=== PATIENT | male | born 1955 | race Caucasian/White ===

== ENCOUNTER 2016-12-04 09:56 | Observation (INO) | payer OTHER ==
[2016-12-04 10:42] VITALS: BMI 26.4
--- NOTE | 2016-12-04 11:08 | PDOC ---
History of Present Illness - General Chief Complaint: Syncope/Near Syncope Stated Complaint: syncope Time Seen by Provider: 12/04/16 10:21 - History of Present Illness Initial Comments: 12/04/16 11:02 61-year-old male with a past medical history of hypertension, kidney stones, and an incomplete right bundle branch block He is a nonsmoker, and states that his mother did have a history of heart disease He states that he did have a stress test 3-4 years ago which was reportedly negative, done at another hospital Patient is recently been under a lot of stress, due to loss of his job and for the past 48 hours he's been homeless with his and child Patient states that at 7:45 this morning he was arguing with his , when he developed sudden sharp, midsternal chest pain, and then had a witnessed syncopal episode, which was brief. He didn't fall to the ground He states that he did awaken quickly, and come around quickly, and when he came around he denied any chest pain He did complain of generalized weakness He states he was hyperventilating He denies any neck jaw or arm radiation, he denies any back radiation He denies any diaphoresis He admits to some slight palpitations He states that he feels "okay" now She states that approximately 9 months ago he had a similar episode He denies any recent intercurrent illnesses, he denies any fevers or chills, vomiting diarrhea, cough or sputum, or any other complaints at this time He is not having any chest pain at this time He denies any other complaints at this time, and the remainder of the review of systems is negative Past History - Past Medical History Allergies/Adverse Reactions: Allergies Allergy/AdvReac Type Severity Reaction Status Date / Time orange Allergy Intermediate Hives Verified 12/04/16 11:18 peach Allergy Intermediate Difficulty Verified 12/04/16 11:18 Breathing almonds Allergy Intermediate Difficulty Uncoded 12/04/16 11:18 Breathing Home Medications: Ambulatory Orders Amlodipine Besylate [Norvasc -] 5 mg PO DAILY 10/31/13 Lisinopril/Hydrochlorothiazide [Lisinopril-Hctz 20-12.5 mg Tab] 1 each PO DAILY 04/21/14 Aspirin Coated [Ecotrin -] 81 mg PO DAILY tablet.ec 12/04/16 HTN: Yes Suicide Attempt (Hx): No - Family Disease History Family Disease History: Heart Disease: Father (hypertension) - Immunization History Immunization Up to Date: Yes - Psycho/Social/Smoking Cessation Hx Anxiety: No Suicidal Ideation: Yes Smoking History: Never smoked Have you smoked in the past 12 months: No Information on smoking cessation initiated: No Hx Alcohol Use: No Drug/Substance Use Hx: No Substance Use Type: None Hx Substance Use Treatment: No Review of Systems - Review of Systems Able to Perform ROS?: Yes Comments:: 12/04/16 11:05 12 point review of systems is as per history of present illness and otherwise negative *Physical Exam - Vital Signs Last Vital Signs Temp Pulse Resp BP Pulse Ox 98.1 F 71 19 126/81 100 12/04/16 09:57 12/04/16 09:57 12/04/16 09:57 12/04/16 09:57 12/04/16 09:57 - Physical Exam Comments: 12/04/16 11:05 Physical exam Last Vital Signs Temp Pulse Resp BP Pulse Ox 98.1 F 71 19 126/81 100 12/04/16 09:57 12/04/16 09:57 12/04/16 09:57 12/04/16 09:57 12/04/16 09:57 GENERAL: The patient is awake, alert, and fully oriented, and in no apparent distress. HEAD: Normal with no signs of trauma. EYES: Pupils equal, round and reactive to light, extraocular movements intact, sclera anicteric, conjunctiva are normal. ENT: oropharynx clear without exudates. Moist mucous membranes. NECK: Normal range of motion, supple LUNGS: Breath sounds equal, clear to auscultation bilaterally. No wheezes, and no crackles. HEART: Regular rate and rhythm, normal S1 and S2 without murmur, rub or gallop. ABDOMEN: Soft, nontender, normoactive bowel sounds. No guarding, no rebound. No masses appreciated. EXTREMITIES: Normal range of motion, no edema. No clubbing or cyanosis. No cords, erythema, or tenderness. NEUROLOGICAL: Cranial nerves II through XII grossly intact. Normal speech, normal gait. PSYCH: Normal mood, normal affect. SKIN: Warm, Dry, normal turgor, no rashes or lesions noted. Heart Score/ECG Review - History History: Moderately suspicious - Electrocardiogram EKG: Non specific repolarization disturbance - Age Age: 45-65 - Risk Factors Risk Factors Heart Score: Yes Hx Hypertension, Yes Positive family hx of cardiac disease Based on the list above the patient has:: 1-2 risk factors - Troponin Troponin: </= normal limit - Score Heart Score - Total: 4 ED Treatment Course - LABORATORY CBC & Chemistry Diagram: 12/04/16 11:15 12/04/16 11:04 - RADIOLOGY Radiology Studies Ordered: Category Date Time Status CHEST X-RAY PORTABLE* [RAD] Stat Radiology 12/04/16 10:30 Ordered Medical Decision Making - Medical Decision Making 12/04/16 11:06 Heart score 4 Patient with risk factors of hypertension, family history EKG Normal sinus rhythm 76, 0 axis Normal OH interval Incomplete right bundle branch block, with a QRS duration of 106 ms Normal QTC No evidence of Brugada syndrome on EKG Patient states that he does have a history of an incomplete bundle branch block Patient also states that due to the severe stress he is under an family situation, he has been feeling intermittently suicidal, but denies having a plan , and states that he would not do anything because of his lab and concern for his son Given all the above, and the heart score of 4, patient will need to be placed in observation for serial enzymes and cardiac workup, can be seen by psychiatry and social work while here 12/04/16 12:45 Chest x-ray NAD Laboratory Results - last 24 hr 12/04/16 12/04/16 12/04/16 11:04 11:15 11:15 WBC 5.0 RBC 5.02 Hgb 13.9 Hct 43.1 MCV 85.9 MCHC 32.2 RDW 12.8 Plt Count 212 MPV 8.0 Sodium 134 L Potassium 3.9 Chloride 99 Carbon Dioxide 24 Anion Gap 11 BUN 15 Creatinine 1.2 Creat Clearance w eGFR > 60 Random Glucose 91 Calcium 8.8 Magnesium 2.1 Total Bilirubin 1.5 H AST 21 ALT 15 Alkaline Phosphatase 71 Creatine Kinase 124 Total Protein 7.0 Albumin 4.0 First set of cardiac enzymed negative Will place in observation 12/04/16 13:[address] Guillermo Parker-Will place in observation, will put in consult for cardiology and psych 12/04/16 13:[address] Cruz, cardiology, will see patient in consultation 12/04/16 14:14 Dr. Chepuru callback-case discussed with Dr. Devries-will see patient in consultation *DC/Admit/Observation/Transfer Diagnosis at time of Disposition: Chest pain, Syncope - Discharge Dispostion Condition at time of disposition: Good Admit: Yes
[2016-12-04 11:44] LABS: MCH 27.7 pg (25.7-33.7); MCHC 32.2 g/dl (32.0-35.9); MEAN CELL VOLUME 85.9 fl (80-96); PLATELET COUNT 212 K/MM3 (134-434); RDW 12.8 % (11.9-15.9)
[2016-12-04 12:28] LABS: CPK(DFH) 124 IU/L (38-174)
[2016-12-04 12:29] LABS: ALK PHOS 71 U/L (32-92); ANION GAP 11 (8-16); BILIRUBIN,TOTAL 1.5 mg/dl (0.2-1.0); CALCIUM 8.8 mg/dl (8.4-10.2); CO2 24 mmol/L (22-28); CREATININE 1.2 mg/dl (0.6-1.3); GLUCOSE,RANDOM 91 mg/dl (74-106); MAGNESIUM 2.1 mg/dL (1.8-2.4); SGOT/AST 21 U/L (10-42); SGPT/ALT 15 U/L (10-40)
--- NOTE | 2016-12-04 12:29 | EKG ---
Test Reason : Blood Pressure : / mmHG Vent. Rate : 076 BPM Atrial Rate : 076 BPM P-R Int : 152 ms QRS Dur : 106 ms QT Int : 382 ms P-R-T Axes : 021 000 037 degrees QTc Int : 429 ms NORMAL SINUS RHYTHM NORMAL ECG NO PREVIOUS ECGS AVAILABLE Confirmed by GILBERT KEVIN MD ([id number]) on 12/04/2016 12:28:52 PM Referred By: CEFERINO LEONG Confirmed By:GILBERT KEVIN MD
[2016-12-04 12:53] LABS: TROPONIN I (DFP) < 0.03 ng/ml (0.03-0.50)
[2016-12-04] MEDS: HYDROCHLOROTHIAZIDE 12.5 MG CAPSULE (FP) PO SCH (13:25)
[2016-12-04] MEDS ORDERED: LISINOPRIL 20 MG TABLET (FP) PO SCH (13:30)
--- NOTE | 2016-12-04 17:21 | CONSULT ---
Cardiology Consult (text) - Consultation Consultation Note: 61-year-old male with a past medical history of hypertension, kidney stones, anxiety with panic attacks and depression who presents with CP and syncopal event. Had episode of severe CP while arguing with his . Experienced severe CP for a few seconds and then sudden loss of consciousness. witnessed him collapse to floor. Brief LOC. Dizzy and weak on arousal, no longer was feeling cp. Similar episode of CP with syncope one year ago, was evaluated in ER, no etiology identified. No other h/o dizziness/presyncope. States has similar chest discomfort when he experiences panic attacks. +++ stress, due to loss of his job and currently homeless. Endorses adherence to anti-hypertensives. No recent decrease in functional capacity. No h/o palps, sob, orthopnea, pnd, le edema, abdominal discomfort, claudication, bleeding. No f/c/s, n/v/d, headache, rashes, cough. PMHx/PSHx: per hpi Social hx: Never smoked, rare etoh, no illicits. Family hx: Father with stroke and CO in his 90's. Ros: per hpi Allergies/Adverse Reactions: Allergies Allergy/AdvReac Type Severity Reaction Status Date / Time orange Allergy Intermediate Hives Verified 12/04/16 11:18 peach Allergy Intermediate Difficulty Verified 12/04/16 11:18 Breathing almonds Allergy Intermediate Difficulty Uncoded 12/04/16 11:18 Breathing Ambulatory Orders Amlodipine Besylate [Norvasc -] 5 mg PO DAILY 10/31/13 Lisinopril/Hydrochlorothiazide [Lisinopril-Hctz 20-12.5 mg Tab] 1 each PO DAILY 04/21/14 Current Medications Amlodipine Besylate (Norvasc -) 5 mg PO DAILY [facility] Heparin Sodium (Porcine) (Heparin -) 5,000 unit SQ BID [facility] Hydrochlorothiazide (Hctz -) 12.5 mg PO DAILY [facility] Lisinopril (Prinivil) 20 mg PO DAILY [facility] Vital Signs - 24 hr 12/04/16 12/04/16 12/04/16 09:57 11:44 13:45 Temperature 98.1 F 98.1 F Pulse Rate 71 Pulse Rate [ 68 83 Left Radial] Respiratory 19 20 20 Rate Blood Pressure 126/81 Blood Pressure 102/88 116/66 [Right Arm] O2 Sat by Pulse 100 99 97 Oximetry (%) Intake & Output 12/02/16 12/03/16 12/04/16 12/05/16 07:59 07:59 07:59 07:59 Weight 190 lb NAD, calm JVD flat, neck supple CTAB, nl effort RRR nl s1, s2 no m/r/g + bs soft nt nd ext without e/c/c + dp/pt no carotid bruits aaox 3 no jaundice, diaphoresis CBC, BMP 12/04/16 11:15 12/04/16 11:04 Laboratory Tests 12/04/16 12/04/16 12/04/16 11:04 11:15 18:30 Magnesium 2.1 Total Bilirubin 1.5 H AST 21 ALT 15 Alkaline Phosphatase 71 Creatine Kinase 124 Troponin I < 0.03 L < 0.03 L Albumin 4.0 EKG: NSR, nl axis/intervals. No ischemic changes. tele: NSR CXR: clear lung de leon. 61-year-old male with a past medical history of hypertension, kidney stones, anxiety with panic attacks and depression who presents with CP and syncopal event. CP/syncope - CE's neg x 2. EKG without ischemic changes. atypical for ACS. - telemetry monitoring - orthostatic vitals in am, IVF if needed. BP running low would hold amlodipine and lisinopril. Con't HCTZ for now if sodium remains stable and patient not orthostatic. - echo, carotid u/s - TSH - management of stress/anxiety per pmd/psych. HTN - medication adjustments as mentioned above.
[2016-12-04 19:04] LABS: CPK(DFH) 111 IU/L (38-174)
[2016-12-04 19:16] LABS: TROPONIN I (DFP) < 0.03 ng/ml (0.03-0.50)
--- NOTE | 2016-12-04 21:41 | HP ---
Admitting History and Physical - Admission Chief Complaint: Non Exert Chest Pain w assoc 30 sec of LOC on day of admission History of Present Illness: and Son at Bedside. 61 m w hx HTN, Inc RBBB and Obesity was having what he described as a heated argument w his when he felt sharp and short sternal chest pain followed by 30 sec LOC. Denies SOB, Lighthedeness, vertigo, palpitations, diaphoresis, rad of sxs, DSOUZA, dyspepsia , N/V?D or memory loss or incontinence. reported he was weak in the legs and needed assistance from son to get up from floor when awoken from loc episode.She denies inv movemnts or foaming of mouth. Pt asid he had asimilar episode w assoc Elev BP at 200/100 (Says he had not been compliant w meds at that terrell) while arguing w 1 yr ago. He was eval in ED @ [facility] and dc home; later saw Cardio but unclear wheteher a complete wk up was done. Pt has been asymptomatic since and he HAS been compliant w BP meds daily. Significant social Hx patient lost his job recently and has been homeless w And Son x 2 days. History Source: Patient, Family Member Limitations to Obtaining History: No Limitations - Past Medical History Cardiovascular: Yes: HTN, Other (inc RBBB) Renal/: Yes: Renal Calculi (x2 yr ago) Psych: Yes: Anxiety (per ) - Past Surgical History Past Surgical History: Yes: Tonsillectomy - Smoking History Smoking history: Never smoked Have you smoked in the past 12 months: No - Alcohol/Substance Use Hx Alcohol Use: No - Social History ADL: Independent Occupation: unemployed- lost job recently Other Social History: Lost Job several days ago; Is Presently Homeless x 2day w and son - was staying in [facility] x 1-2 days Home Medications - Allergies Allergies/Adverse Reactions: Allergies Allergy/AdvReac Type Severity Reaction Status Date / Time orange Allergy Intermediate Hives Verified 12/04/16 11:18 peach Allergy Intermediate Difficulty Verified 12/04/16 11:18 Breathing almonds Allergy Intermediate Difficulty Uncoded 12/04/16 11:18 Breathing - Home Medications Home Medications: Ambulatory Orders Amlodipine Besylate [Norvasc -] 5 mg PO DAILY 10/31/13 Lisinopril/Hydrochlorothiazide [Lisinopril-Hctz 20-12.5 mg Tab] 1 each PO DAILY 04/21/14 Family Disease History - Family Disease History Family Disease History: Heart Disease: Mother Review of Systems - Review of Systems Constitutional: reports: No Symptoms Neck: reports: No Symptoms Cardiovascular: reports: Chest Pain Respiratory: reports: No Symptoms Gastrointestinal: reports: No Symptoms Genitourinary: reports: No Symptoms Breasts: reports: No Symptoms Reported Musculoskeletal: reports: Other (leg weakness post syncope - resolved spont almos immediately) Integumentary: reports: No Symptoms Neurological: reports: No Symptoms Endocrine: reports: No Symptoms Hematology/Lymphatic: reports: No Symptoms Psychiatric: reports: Anxiety, Suicidal (NOT) Pain Intensity: 0 Physical Examination Vital Signs: Vital Signs Temperature 98.1 F 12/04/16 13:45 Pulse Rate 83 12/04/16 13:45 Respiratory Rate 20 12/04/16 13:45 Blood Pressure 116/66 12/04/16 13:45 O2 Sat by Pulse Oximetry (%) 97 12/04/16 13:45 Constitutional: Yes: Well Nourished, Calm, Obese, Poor Hygeine (most likey assoc w preseny Homeless situation) Neck: Yes: Supple, Trachea Midline, Other (no jvd no bruit) Cardiovascular: Yes: WNL, Regular Rate and Rhythm, Murmur (no murm) Respiratory: Yes: Regular, CTA Bilaterally Gastrointestinal: Yes: Normal Bowel Sounds, Soft, Abdomen, Obese ...Rectal Exam: Yes: Deferred Musculoskeletal: Yes: WNL Extremities: Yes: WNL Edema: No Peripheral Pulses: Left Doralis Pedis: 3+, Right Dorsalis Pedis: 3+ Integumentary: Yes: WNL Neurological: Yes: WNL, Alert, Oriented, Other (NON focal) Psychiatric: Yes: Alert, Oriented, Suicidal Ideation (NONE), Other (calm coop composed during visit and exAM) Imaging - Results Chest X-ray: Report Reviewed EKG: Report Reviewed Problem List - Problems (1) Chest pain Assessment/Plan: Sharp w assoc short syncope while Hi Stressors ocurring during argument w - similarly as ocurred 1 yr ago and NOT cardiac etiology. Most likely etiology are pts Hi degree stressors. . Nevertheless pt does have CAD risk factors; Male sex, HTN, Fa Hx CAD in mom; Morbid obesity ( No tobacco, HLD, DM, CAD Hx). Cardiology consulted; agree w wkup thus far- Echo. Jose w ASA daily and cont BP Meds Na controlled diet. Code(s): R07.9 - CHEST PAIN, UNSPECIFIED (2) Syncope Assessment/Plan: immediately post ac onset of chest pain and immediately resolved spontanously wo assoc sxs or neurological sequela. Most likely vasovagl assosc w hi degree stressors but agree w Cardio to eval carotds via ULSD Code(s): R55 - SYNCOPE AND COLLAPSE (3) Renal calculus, right Assessment/Plan: aymptomatic Code(s): N20.0 - CALCULUS OF KIDNEY (4) Anxiety Assessment/Plan: see above Pos hx per At bedside; pt w hi degree stressors. Psychiatry and SW/CM consult ordred Code(s): F41.9 - ANXIETY DISORDER, UNSPECIFIED (5) Homeless Code(s): Z59.0 - HOMELESSNESS (6) Discharge planning issues Assessment/Plan: disc w pt, (son was present as well) clinical condition and plan of care incl consultants requested. Aoll /s answered; hey agreed w plan and verb understanding Code(s): Z02.9 - ENCOUNTER FOR ADMINISTRATIVE EXAMINATIONS, UNSPECIFIED (7) Hypertension Assessment/Plan: at goal;I Recommend Low Salt diet ->if available - pt IS homeless at this time - and enc meds compliance. Code(s): I10 - ESSENTIAL (PRIMARY) HYPERTENSION
[2016-12-04] MEDS: HEPARIN NA (PORCINE) 5,000 UNITS/ML 1ML VIAL SQ SCH (22:01)
--- NOTE | 2016-12-04 22:29 | PN ---
Progress Note (short form) - Note Progress Note: ADDENDUM 12-04-2016 LABS NOT Documented In Hx and Px Current Medications Generic Name Dose Route Start Last Admin Trade Name Michelle PRN Reason Stop Dose Admin Amlodipine Besylate 5 mg 12/05/16 10:00 Norvasc - PO DAILY [facility] Aspirin 81 mg 12/05/16 10:00 Ecotrin - PO DAILY [facility] Heparin Sodium (Porcine) 5,000 unit 12/04/16 22:00 Heparin - SQ BID [facility] Hydrochlorothiazide 12.5 mg 12/04/16 13:30 12/04/16 13:25 Hctz - PO 12.5 mg DAILY [facility] Administration Lisinopril 20 mg 12/04/16 13:30 12/04/16 13:30 Prinivil PO 20 mg DAILY [facility] Administration Note. Laboratory Last Values WBC 5.0 K/mm3 (4.0-10.0) 12/04/16 11:15 RBC 5.02 M/mm3 (4.00-5.60) 12/04/16 11:15 Hgb 13.9 GM/dl (11.7-16.9) 12/04/16 11:15 Hct 43.1 % (35.4-49) 12/04/16 11:15 MCV 85.9 fl (80-96) 12/04/16 11:15 MCHC 32.2 g/dl (32.0-35.9) 12/04/16 11:15 RDW 12.8 % (11.9-15.9) 12/04/16 11:15 Plt Count 212 K/MM3 (134-434) 12/04/16 11:15 MPV 8.0 fl (7.5-11.1) 12/04/16 11:15 Sodium 134 mmol/L (136-145) L 12/04/16 11:04 Potassium 3.9 mmol/L (3.5-5.1) 12/04/16 11:04 Chloride 99 mmol/L (98-107) 12/04/16 11:04 Carbon Dioxide 24 mmol/L (22-28) 12/04/16 11:04 Anion Gap 11 (8-16) 12/04/16 11:04 BUN 15 mg/dl (7-18) 12/04/16 11:04 Creatinine 1.2 mg/dl (0.6-1.3) 12/04/16 11:04 Creat Clearance w eGFR > 60 (>60) 12/04/16 11:04 Random Glucose 91 mg/dl (74-106) 12/04/16 11:04 Calcium 8.8 mg/dl (8.4-10.2) 12/04/16 11:04 Magnesium 2.1 mg/dL (1.8-2.4) 12/04/16 11:04 Total Bilirubin 1.5 mg/dl (0.2-1.0) H 12/04/16 11:04 AST 21 U/L (10-42) 12/04/16 11:04 ALT 15 U/L (10-40) 12/04/16 11:04 Alkaline Phosphatase 71 U/L (32-92) 12/04/16 11:04 Creatine Kinase 111 IU/L (38-174) 12/04/16 18:30 Troponin I < 0.03 ng/ml (0.03-0.50) L 12/04/16 18:30 Total Protein 7.0 g/dl (6.4-8.3) 12/04/16 11:04 Albumin 4.0 g/dl (3.5-5.0) 12/04/16 11:04 ALL WNL-Cardiac enzymes NEG w LDL 64. END of note Problem List - Problems (1) Chest pain Code(s): R07.9 - CHEST PAIN, UNSPECIFIED (2) Syncope Code(s): R55 - SYNCOPE AND COLLAPSE (3) Renal calculus, right Code(s): N20.0 - CALCULUS OF KIDNEY (4) Anxiety Code(s): F41.9 - ANXIETY DISORDER, UNSPECIFIED (5) Homeless Code(s): Z59.0 - HOMELESSNESS (6) Discharge planning issues Code(s): Z02.9 - ENCOUNTER FOR ADMINISTRATIVE EXAMINATIONS, UNSPECIFIED (7) Hypertension Code(s): I10 - ESSENTIAL (PRIMARY) HYPERTENSION
[2016-12-05 02:49] LABS: TROPONIN I < 0.02 ng/ml (0.00-0.05)
[2016-12-05 06:40] VITALS: TEMP 98.5
[2016-12-05 09:35] LABS: CHOLESTEROL 176 mg/dl
[2016-12-05] MEDS ORDERED: amLODIPine BESYLATE 5 MG TABLET (FP) PO SCH (10:00)
[2016-12-05] MEDS ORDERED: ASPIRIN COATED 81 MG TABLET.EC PO SCH (10:00)
[2016-12-05] MEDS: HYDROCHLOROTHIAZIDE 12.5 MG CAPSULE (FP) PO SCH (11:00)
[2016-12-05] MEDS: HEPARIN NA (PORCINE) 5,000 UNITS/ML 1ML VIAL SQ SCH (11:00)
[2016-12-05 14:28] VITALS: BP 123/75; PULSE 82
--- NOTE | 2016-12-05 15:15 | CONSULT ---
Psychiatry Consult Chief Complaint: I have no place to go. We are homeless. I never hernan any psych problems. - Previous Psychiatric Treatment Outpatient: None Inpatient: None - Previous Substance Abuse Treatment Outpatient: None Inpatient: None - Family History Family History: Unremarkable - Current Medications Current Medications: Active Medications Aspirin (Ecotrin -) 81 mg PO DAILY [facility] Last Admin: 12/05/16 11:00 Dose: 81 mg Heparin Sodium (Porcine) (Heparin -) 5,000 unit SQ BID [facility] Last Admin: 12/05/16 11:00 Dose: 5,000 unit Hydrochlorothiazide (Hctz -) 12.5 mg PO DAILY [facility] Last Admin: 12/05/16 11:00 Dose: 12.5 mg - Allergies Allergies: Allergies Allergy/AdvReac Type Severity Reaction Status Date / Time orange Allergy Intermediate Hives Verified 12/04/16 11:18 peach Allergy Intermediate Difficulty Verified 12/04/16 11:18 Breathing almonds Allergy Intermediate Difficulty Uncoded 12/04/16 11:18 Breathing - Current Living Status Usual Living Arrangement: With Spouse - Current Mental Status Evaluation Appearance: Well Groomed Attitude: Cooperative - Affect Affect: Full Range Appropriateness: Appropriate to Content - Mood Mood: Anxious - Speech/Language Expressive: Coherent Receptive: Age Appropriate Comprehension of Spoken Words - Psychomotor Activity Psychomotor Activity: Normal - Thought Process Thought Process: Intact - Thought Content Hallucinations: Absent Delusions: Absent - Self Perception Self Perception: No Impairment - Cognition Attention: Alert Orientation: Time Memory, Immediate Recall: Intact Memory, Remote: Intact - Concentration Serial Sevens Intact: Yes Simple Calculations Intact: Yes - Abstraction Proverb Interpretation: Intact Judgement: Intact - Insight Insight: Intact - Impulse Control Impulse Control: Good Control - Suicidal Ideation Suicidal Ideation: No - Homicidal Ideation Homicidal Ideation: No Assessment/Plan 1) No acute Mental Illness. 2) Discharge when medically stable.
--- NOTE | 2016-12-05 15:28 | PN ---
Progress Note (short form) - Note Progress Note: ADDENDUM 12-04-2016 LABS NOT Documented In Hx and Px Current Medications Generic Name Dose Route Start Last Admin Trade Name Michelle PRN Reason Stop Dose Admin Amlodipine Besylate 5 mg 12/05/16 10:00 Norvasc - PO DAILY [facility] Aspirin 81 mg 12/05/16 10:00 Ecotrin - PO DAILY [facility] Heparin Sodium (Porcine) 5,000 unit 12/04/16 22:00 Heparin - SQ BID [facility] Hydrochlorothiazide 12.5 mg 12/04/16 13:30 12/04/16 13:25 Hctz - PO 12.5 mg DAILY [facility] Administration Lisinopril 20 mg 12/04/16 13:30 12/04/16 13:30 Prinivil PO 20 mg DAILY [facility] Administration Note. Laboratory Last Values WBC 5.0 K/mm3 (4.0-10.0) 12/04/16 11:15 RBC 5.02 M/mm3 (4.00-5.60) 12/04/16 11:15 Hgb 13.9 GM/dl (11.7-16.9) 12/04/16 11:15 Hct 43.1 % (35.4-49) 12/04/16 11:15 MCV 85.9 fl (80-96) 12/04/16 11:15 MCHC 32.2 g/dl (32.0-35.9) 12/04/16 11:15 RDW 12.8 % (11.9-15.9) 12/04/16 11:15 Plt Count 212 K/MM3 (134-434) 12/04/16 11:15 MPV 8.0 fl (7.5-11.1) 12/04/16 11:15 Sodium 134 mmol/L (136-145) L 12/04/16 11:04 Potassium 3.9 mmol/L (3.5-5.1) 12/04/16 11:04 Chloride 99 mmol/L (98-107) 12/04/16 11:04 Carbon Dioxide 24 mmol/L (22-28) 12/04/16 11:04 Anion Gap 11 (8-16) 12/04/16 11:04 BUN 15 mg/dl (7-18) 12/04/16 11:04 Creatinine 1.2 mg/dl (0.6-1.3) 12/04/16 11:04 Creat Clearance w eGFR > 60 (>60) 12/04/16 11:04 Random Glucose 91 mg/dl (74-106) 12/04/16 11:04 Calcium 8.8 mg/dl (8.4-10.2) 12/04/16 11:04 Magnesium 2.1 mg/dL (1.8-2.4) 12/04/16 11:04 Total Bilirubin 1.5 mg/dl (0.2-1.0) H 12/04/16 11:04 AST 21 U/L (10-42) 12/04/16 11:04 ALT 15 U/L (10-40) 12/04/16 11:04 Alkaline Phosphatase 71 U/L (32-92) 12/04/16 11:04 Creatine Kinase 111 IU/L (38-174) 12/04/16 18:30 Troponin I < 0.03 ng/ml (0.03-0.50) L 12/04/16 18:30 Total Protein 7.0 g/dl (6.4-8.3) 12/04/16 11:04 Albumin 4.0 g/dl (3.5-5.0) 12/04/16 11:04 ALL WNL-Cardiac enzymes NEG w LDL 64. END of note 12-05-16 Cardiology eval WNL and clared to ri home. Psyhiatry reported no Mental Illness and cleared to ri from hosp. [place] [facility] order[facility]. END of [place]. Problem List - Problems (1) Chest pain Code(s): R07.9 - CHEST PAIN, UNSPECIFIED (2) Syncope Code(s): R55 - SYNCOPE AND COLLAPSE (3) Renal calculus, right Code(s): N20.0 - CALCULUS OF KIDNEY (4) Anxiety Code(s): F41.9 - ANXIETY DISORDER, UNSPECIFIED (5) Homeless Code(s): Z59.0 - HOMELESSNESS (6) Discharge planning issues Code(s): Z02.9 - ENCOUNTER FOR ADMINISTRATIVE EXAMINATIONS, UNSPECIFIED (7) Hypertension Code(s): I10 - ESSENTIAL (PRIMARY) HYPERTENSION
== END 2016-12-05 15:45 | disposition home or self-care (01) ==
LOC: FER 09:56 → FM/S 13:11
DX: R07.9 Chest pain, unspecified (principal); R55 Syncope and collapse; N20.0 Calculus of kidney; F41.9 Anxiety disorder, unspecified; I10 Essential (primary) hypertension
CPT/HCPCS: 36415; 71010-TC; 80053; 80061; 82550; 83735; 84484; 85027; 93005; 93306-TC; 93880-TC; 99285-25; G0378; J1644